=== PATIENT | male | born 1965 | race Caucasian/White ===

== ENCOUNTER 2018-06-15 08:00 | Day surgery (SDC) | payer OTHER ==
[2018-06-15] MEDS ORDERED: SOD CHLORIDE 0.9% 1,000 ML IV (08:30)
[2018-06-15] MEDS: LIDOCAINE 1% (MPF) 5 ML VIAL (10:35)
[2018-06-15] MEDS: MIDAZOLAM 1 MG/ML 2 ML INJ (10:40)
[2018-06-15] MEDS: FENTAnyl 50 MCG/ML VIAL (10:40)
[2018-06-15] MEDS: GELATIN 12MM X 7 MM SPONGE (11:10)
[2018-06-15] MEDS ORDERED: HYDROCODONE/APAP (5/325) TAB PO (12:00)
== END 2018-06-15 13:40 | disposition home or self-care (01) ==
LOC: SDS 08:00
DX: I12.9 Hypertensive chronic kidney disease with stage 1 through stage 4 chronic kidney disease, or unspecified chronic kidney disease (principal); N18.9 Chronic kidney disease, unspecified; N26.9 Renal sclerosis, unspecified
CPT/HCPCS: 50200; 77012